=== PATIENT | male | born 1970 | race Two or more races ===

== ENCOUNTER 2024-09-09 08:12 | Emergency (ER) | payer BC, SELFPAY ==
[2024-09-09 08:24] VITALS: BP 134/88; PULSE 100; RESP 18; TEMP 36.7; O2SAT 96; BMI 28.0
--- NOTE | 2024-09-09 08:59 | EDNOTE_ITS ---
ED Abdominal Pain RME/HPI General Chief Complaint: General Adult/Misc Complain Stated complaint: Lost 30 lbs over 2 months, diff. swallowing Time seen by provider: 09/09/24 08:20 Arrival date/time: 09/09/24 08:12 RME / HPI RME / HPI narrative: 53 year old male with history of hypertension, hyperlipidemia, GERD presents to the ED for evaluation of progressively worsening dysphagia over the past month. He is accompanied by his daughter, who provides much of the history. The patient reports difficulty swallowing, though he is still able to tolerate small amounts of water and soft foods. Patient expressed concerns about the progression of symptoms, which are now accompanied by intermittent episodes of vomiting. Daughter notes that over the past two months, he has experienced unintentional weight loss of approximately 30 lbs, along with increasing difficulty swallowing. He was evaluated by his PCP and referred to Dr. Brown at [facility] [place]. 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 pylori, and biopsy-confirmed esophageal adenocarcinoma. A colonoscopy performed on 08/14/2024 showed stage I internal hemorrhoids with no colon polyps. Daughter states the patient was initially referred to Dr. Ashkan Prescott at [facility] but was subsequently redirected to Dr. Bowden at [facility] for further care. According to his daughter, they are still awaiting an appointment. Despite multiple follow-up attempts with [facility], Dr. Brown?s office, and their insurance provider (which has approved additional procedures), they have been unable to secure further evaluation or treatment. Patient denies fevers, chills, chest pain, cough, abdominal pain, diarrhea, or constipation. Related Data Allergies Allergy/AdvReac Type Severity Reaction Status Date / Time No Known Drug Allergies Allergy Verified 09/09/24 08:21 Review of Systems Review of Systems Systems Reviewed: All systems reviewed, normal except as documented Past Medical History Social History SMOKING STATUS: Never smoker ED Exam Narrative Physical exam: GEN. APPEARANCE: The patient is alert awake oriented X-3 in no distress, does not look ill/toxic.? Patient has good eye contact.? Patient is cooperative. VITALS:? All vitals were reviewed and the pulse ox is 96% on room air which is normal according to my interpretation. HEENT: Normocephalic, atraumatic.? Pupils are equal and reactive.? Oral mucosa is moist. Patent Nares NECK: Supple, nontender, no thyromegaly, no meningismus, no JVD CHEST: Symmetrical, atraumatic, and with equal expansion , Nontender on pa lpation no deformity and no crepitus. CARDIOVASCULAR: Heart regular rhythm no murmur or gallop rub or extra beats. LUNGS: Clear to auscultation bilaterally with symmetrical chest rise.? No laboring tachypnea or wheezing.? No intercostal subcostal retraction.? No rales and no rhonchi. ABDOMEN: Soft, flat, nontender to palpation, no guarding or rebound tenderness.? There are no abnormal masses palpated.? Active and normal bowel sounds. EXTREMITIES: Nontender.? No edema.? No cyanosis.? Patient is able to move all 4 extremities well, with full ROM and good CSM. SKIN: Warm and dry, no jaundice or rashes noted. MUSCULOSKELETAL: No lumbar or midline bony tenderness.? There is no CVA tenderness.? No paraspinal muscle spasm or tenderness. NEURO: Patient is DENNEY x 4, Cranial nerves II through XII grossly intact.? There is no focal neurologic deficits noted.? GCS is 15, PNS and MARKETING ADMINISTRATOR appear grossly intact. PSYCHIATRIC: Patient is in normal mood and affect. Course Quality Measures none Orders Category Date Time Status CT Screening NOW Care 09/09/24 09:[address] Screening NOW Care 09/09/24 09:[address] chest abdomen pelvis w Stat Exams 09/09/24 09:[address] head/brain wo con Stat Exams 09/09/24 09:[address] soft tissue neck chest w Stat Exams 09/09/24 09:19 Ordered XR esophogram standard Stat Exams 09/09/24 09:00 Ordered CBC Stat Lab 09/09/24 09:12 Received CMP [Comprehensive Metabolic Panel] Stat Lab 09/09/24 09:12 Received PT [Prothrombin Time with INR] Stat Lab 09/09/24 09:12 Received Vital Signs Vital signs: Vital Signs Temperature 98.0 F 09/09/24 08:24 Pulse Rate 100 09/09/24 08:24 Respiratory Rate 18 09/09/24 08:24 Blood Pressure 134/88 H 09/09/24 08:24 Pulse Oximetry (%) 96 09/09/24 08:24 Oxygen Delivery Method Room Air 09/09/24 08:24 Abdominal Pain MDM MDM Narrative MDM Narrative:: I, Erna Bishop, am scribing for and in the presence of Dr. Barlow. I spoke with patients family member who stated GI Dr. Balderas has been made aware of the patients case and is requesting CTs and give him a call back. Patient data External records reviewed:: None (No previous visits for review ) Clinical information provided by:: patient and family (Daughter ) Social determinants that could affect healthcare access:: none Patient has the following chronic illnesses:: HTN, HLD, DM recently diagnosed with barrets esophagus, h.Pylori, and adenocarcinoma How is presenting disease/condition affected by chronic disease/condition?: exacerbated by Evaluation data The following diagnostics were reviewed and interpreted by me:: lab results Lab and/or radiology exams considered but not ordered:: None Interpretation Summary: CBC unremarkable. CMP and imaging studies are pending during sign out. Medications / Prescriptions Medications or Prescriptions considered but not ordered:: None Medication administrations:: None Consultations Consultation(s) initiated? (list below): No Diagnosis Differential diagnosis abdominal pain: abdominal pain and other (esophageal stricture, barrettes esophagus ) Admission Indicated Admission indicated?: not indicated Explain why admission is indicated or not indicated:: Signed out to Dr. Rosa pending final disposition Admission Request Was there a request for admission?: No Disposition Plan Disposition Plan: other (specify) (Signed out to Dr. Rosa ) Discharge Plan Patient/Caregiver Discharge Instructions Print Language: [place]dean
--- NOTE | 2024-09-09 09:00 | XR_ITS ---
Examination: Esophagram standard Fluoroscopy Upright PA chest single view Soft tissue lateral neck single view 30 spot fluoroscopic films of the esophagus Date and time: September 09, 2024 0922 hours INDICATIONS: Heartburn one month difficulty swallowing TECHNIQUE AND FINDINGS: Upright PA chest demonstrates normal heart size and clear lungs Soft tissue lateral neck demonstrates normal epiglottis Patient swallowed thin barium with 30 spot fluoroscopic films of the esophagus obtained Primary peristaltic esophageal waves noted Moderate intermittent gastroesophageal reflux No stricture the gastroesophageal junction No constricting esophageal lesion Fluoroscopy 0.2 minutes radiation dose 84.39 milligray IMPRESSION: Moderate intermittent gastroesophageal reflux There is no stricture at the gastroesophageal junction
--- NOTE | 2024-09-09 09:30 | XR_ITS ---
Examination: CT brain head without contrast. 2-D sagittal coronal reconstructions Date and time of exam:September 09, 2024 0955 hours INDICATIONS: Altered mental status confusion today CTDI: vol (mGy):48.3 DLP: (mGycm):971 Technique: Multiple CT axial sections of the brain have been obtained, 5 mm slice thickness. Contrast has not been administered. 2-D sagittal, coronal reconstructions have been obtained Low dose protocols were performed. One or more of the following dose reduction techniques were used; automated exposure control, adjustment of the mA and/or KV according to patient size, use of iterative reconstruction technique. Findings: No significant ventricular enlargement. Intra-axial or extra-axial hemorrhage density is not seen. No mass effect or midline shift Basal cisterns are not remarkable. Fourth ventricle is midline. Cranial vault intact. Impression: Negative for acute hemorrhage, mass effect or midline shift Advise clinical correlation follow-up accordingly
--- NOTE | 2024-09-09 09:31 | XR_ITS ---
Examination: CT chest with intravenous contrast CT abdomen with intravenous contrast CT pelvis with intravenous contrast 2-D coronal and sagittal reconstructions Time of exam: September 09, 2024 at 1342 hours CTDI: vol (mGy) : 6.86 DLP: (mGycm): 545 Technique: Multiple axial images of the chest, abdomen and pelvis with intravenous contrast, 3.0 mm slice thickness. Images obtained post intravenous injection Isovue 370 60 cc. 2-D sagittal and coronal reconstructions. Low dose protocols were performed. One or more of the following dose reduction techniques were used; automated exposure control, adjustment of the mA and/or KV according to patient size, use of iterative reconstruction technique. Findings: No thoracic aortic aneurysm dilatation No pulmonary artery filling defects No paratracheal tracheobronchial or bronchopulmonary adenopathy. 3 mm pulmonary nodule right upper lobe image 120 8mm pulmonary nodule right upper lobe image 124 2 mm pulmonary nodule right middle lobe image 160 No pneumonia or pulmonary edema No visualized liver or splenic lesion No gallstones No pancreatic mass No hydronephrosis No abdominal or pelvic lymphadenopathy No pericecal inflammatory change 5 cm posterior left bladder diverticulum Normal seminal vesicles No prostatomegaly Mild osteopenia Grade 1 spondylolisthesis L5 on S1 IMPRESSION: Noncalcified pulmonary nodules as above, with this study as baseline recommend 6 month follow-up CT chest without contrast
[2024-09-09 09:38] LABS: Basophils % (Auto) 1 % (0-2.5); Eosinophils # (Auto) 0.1 Thou/mm3 (0.0-0.5); Eosinophils % (Auto) 2 % (0-10); Hemoglobin 15.1 g/dL (13.5-16.0); Immature Granulocytes % (Auto) 0 % (0-0); Immature Granulocytes Auto 0.02 Thou/mm3 (0.00-0.00); Lymphocytes # (Auto) 2.6 Thou/mm3 (1.0-4.8); Lymphocytes % (Auto) 48 % (10-50); Mean Corpuscular HGB Conc 34.3 g/dl (31.0-37.0); Mean Corpuscular Hemoglobin 29.5 pg (25.0-35.0); Mean Corpuscular Volume 86 fL (80-100); Monocytes # (Auto) 0.6 Thou/mm3 (0.0-0.8); Monocytes % (Auto) 10 % (0-12); Neutrophils # (Auto) 2.2 Thou/mm3 (1.8-7.7); Neutrophils % (Auto) 39 % (37-80); Nucleated Red Blood Cell % 0 /100 WBC (0); Platelet Count 258 Thou/mm3 (140-440); RDW Standard Deviation 43.8 fL (35.1-43.9); Red Blood Count 5.12 Miln/mm3 (4.50-5.90); White Blood Count 5.6 Thou/mm3 (3.8-10.6)
--- NOTE | 2024-09-09 09:49 | XR_ITS ---
Examination: CT soft tissue neck, with intravenous contrast. 2-D coronal reconstructions. 2-D sagittal reconstructions. Date and time of exam :September 09, 2024 1330 hours INDICATIONS: Neck carcinoma diagnosis neck pain 3 days. CTDI: vol (mGy):11.3 DLP: (mGycm):322 Technique: 1.25 mm axial sections of the neck of the obtained. Coronal and sagittal reconstructions have been obtained. Intravenous contrast administered 60 cc Isovue-370. Low dose protocols were performed. One or more of the following dose reduction techniques were used; automated exposure control, adjustment of the mA and/or KV according to patient size, use of iterative reconstruction technique. Findings: Symmetrical nasopharynx oropharynx No pathologic carotid triangle lymph nodes or submental lymph nodes The larynx appears normal Thyroid lobes are not enlarged No encroachment upon the subglottic region Lung apices clear Normal epiglottis Moderate to advanced degenerative disc disease C4-C5, C5-C6, C6-C7 IMPRESSION: No nasopharyngeal or oropharyngeal soft tissue mass No pathologic cervical lymphadenopathy Normal larynx and epiglottis
[2024-09-09 09:51] LABS: Prothrombin Time 11.3 Seconds (9.0-12.2)
[2024-09-09 09:57] LABS: Alanine Aminotransferase 37 U/L (10-49); Albumin, Serum 4.8 gm/dL (3.5-5.0); Albumin/Globulin Ratio 2.3 (1.2-2.2); Alkaline Phosphatase 46 U/L (46-116); Anion Gap 7 (7-16); Aspartate Amino Transferase 31 U/L (0-34); BUN/Creatinine Ratio 24 Ratio (12-20); Bilirubin,Total 0.6 mg/dL (0.3-1.2); Blood Urea Nitrogen 19 mg/dL (9-23); Calcium 10.2 mg/dL (8.3-10.6); Calcium (Corrected) 10.2 mg/dL (8.5-10.1); Carbon Dioxide 26.1 mMol/L (20.0-31.0); Chloride 102 mMol/L (98-107); Creatinine (Component) 0.8 mg/dL (0.6-1.3); Globulin 2.1 gm/dL (2.3-3.5); Glucose 186 mg/dL (74-106); Osmolality,Calculated 277 (275-295); Potassium 3.9 mMol/L (3.4-5.1); Sodium 135 mMol/L (136-145); Total Protein 6.9 gm/dL (5.7-8.2); eGFR > 60 See Note
[2024-09-09 12:03] VITALS: BP 124/80; PULSE 90; RESP 17; TEMP 36.7; O2SAT 96
--- NOTE | 2024-09-09 13:21 | EDNOTE_ITS ---
Emergency Room Addendum Addendum Narrative: 914: Care assumed from Dr. Barlow, the previous shift emergency physician. Past medical, surgical, social and family history reviewed. Vitals and home medications reviewed. I will assume the care of the patient at this time, pending imaging, labs, and final disposition. Please refer to the emergency department record for history and examination from initial visit.?The following addendum documentation note is intended to reflect any pending information, findings, or radiology results not included in the patient?s initial chart. I spoke with GI Dr. Balderas. At this time pending chest/abdomen/pelvis CT report. States he will get in contact with GI at [facility]. I again spoke with GI Dr. Balderas. States he has yet to get ahold of GI at [facility] but will continue trying. Discussed radiology reports and advised patient be discharged home with copy of his reports. I discussed plan with the patient and he is amenable with discharge home. Additionally reports he has had bladder symptoms and was recently prescribed Cipro. Will change antibiotic to Keflex and advised he follow up with PCP. RADIOLOGY Ordering Physician: Brea Barlow MD Date of Service: 09/09/24 Procedure(s): XR esophogram standard Accession Number(s): [id number] cc: Remberto Talley MD; Roya Velasquez MD; Brea Barlow MD~ Examination: Esophagram standard Fluoroscopy Upright PA chest single view Soft tissue lateral neck single view 30 spot fluoroscopic films of the esophagus Date and time: September 09, 2024 0922 hours INDICATIONS: Heartburn one month difficulty swallowing TECHNIQUE AND FINDINGS: Upright PA chest demonstrates normal heart size and clear lungs Soft tissue lateral neck demonstrates normal epiglottis Patient swallowed thin barium with 30 spot fluoroscopic films of the esophagus obtained Primary peristaltic esophageal waves noted Moderate intermittent gastroesophageal reflux No stricture the gastroesophageal junction No constricting esophageal lesion Fluoroscopy 0.2 minutes radiation dose 84.39 milligray IMPRESSION: Moderate intermittent gastroesophageal reflux There is no stricture at the gastroesophageal junction Dictated By:Remberto Talley MD Signed By:<Electronically signed by Remberto Talley MD in [place]>09/09/24 1052 Ordering Physician: Brea Barlow MD Date of Service: 09/09/24 Procedure(s): CT head/brain wo con Accession Number(s): [id number] cc: Remberto Talley MD; Roya Velasquez MD; Brea Barlow MD~ Examination: CT brain head without contrast. 2-D sagittal coronal reconstructions Date and time of exam:September 09, 2024 0955 hours INDICATIONS: Altered mental status confusion today CTDI: vol (mGy):48.3 DLP: (mGycm):971 Technique: Multiple CT axial sections of the brain have been obtained, 5 mm slice thickness. Contrast has not been administered. 2-D sagittal, coronal reconstructions have been obtained Low dose protocols were performed. One or more of the following dose reduction techniques were used; automated exposure control, adjustment of the mA and/or KV according to patient size, use of iterative reconstruction technique. Findings: No significant ventricular enlargement. Intra-axial or extra-axial hemorrhage density is not seen. No mass effect or midline shift Basal cisterns are not remarkable. Fourth ventricle is midline. Cranial vault intact. Impression: Negative for acute hemorrhage, mass effect or midline shift Advise clinical correlation follow-up accordingly Dictated By:Remberto Talley MD Signed By:<Electronically signed by Remberto Talley MD in [place]>09/09/24 1023
[2024-09-09 14:48] VITALS: BP 145/85; PULSE 88; RESP 19; TEMP 36.7; O2SAT 95
[2024-09-09 16:39] VITALS: BP 124/79; PULSE 76; RESP 21; O2SAT 97
[2024-09-09 17:04] VITALS: BP 117/82; PULSE 79; RESP 20; O2SAT 96
== END 2024-09-09 17:10 | disposition home or self-care (01) ==
PROVIDERS: Emergency Medicine; Emergency Provider Emergency Medicine; PCP Family Medicine
DX: K21.9 Gastro-esophageal reflux disease without esophagitis (principal); R41.0 Disorientation, unspecified; M54.2 Cervicalgia; C76.0 Malignant neoplasm of head, face and neck
CPT/HCPCS: 36415; 70450; 70491; 71260; 74177; 74220; 80053; 85025; 85610; 99285; A4649; Q9967